=== PATIENT | male | born 1965 | race Caucasian/White ===

== ENCOUNTER 2024-11-08 18:00 | Emergency (ER) | payer BC, SELFPAY ==
[2024-11-08 18:12] VITALS: BP 124/89
[2024-11-08] MEDS: TYLENOL ORAL SOLUTION 650 MG PO (21:31)
[2024-11-08 21:33] VITALS: BMI 23.9
--- NOTE | 2024-11-08 21:39 | ED.GENMED ---
History of Present Illness
General
Chief Complaint: Throat Problem
Source: patient
Time Seen by Provider: 11/08/24 21:30
History of Present Illness
History of Present Illness:
59-year-old male with no significant past medical history presenting to the emergency department for evaluation after earlier this week started with URI-like symptoms including sinus congestion, nasal pressure, sore throat and headache with most of
the symptoms resolving except patient still has the sore throat noting the right side of his throat feels like he is swallowing glass, very pain, notes lesions to the tonsil on the right side and no improvement after being prescribed amoxicillin.
Went to urgent care today and was switched to steroids and a Z-Chris but still having no relief. Patient does note a history of seasonal allergies and usually gets this type of URI once a year. No reported fevers. States for the last 4 days has not
been eating many solids, mostly liquids or ice cream. Denies drooling or spitting. No known sick contacts. Patient currently visiting this area from [place].
Past History
Past History
ED Past Medical History: None
ED Past Surgical History: Other
Social History
Tobacco: Non-smoker
Alcohol: Occasional
Drug: None
Personal:
Living: with family
Employment: Employed
Review of Systems
Review of Systems
All Other Systems: ROS reviewed and negative except as documented in HPI and ROS
Phy Exam
Physical Exam
Physical Exam:
GENERAL: Alert , in no apparent distress, Very anxious
HEAD: Normocephalic atraumatic
EYE: conjunctiva clear
NECK: Supple, no significant adenopathy.
ENT: o/p clr, mmm., Small vesicles to the right palatine tonsil, minimal tonsillar edema, no uvular deviation, no stridor or trismus, tolerating secretions
CARDIAC: Regular rate and rhythm
LUNGS: Clear breath sounds bilaterally, no acute respiratory distress, no wheezes/rales/rhonchi
NEUROLOGICAL: Alert and oriented
SKIN: Warm and dry, skin intact.
MUSCULOSKELETAL: well perfused.
PSYCH: Normal and appropriate interaction.
Scores
Heart Failure Risk
Heart Failure Risk Score: Not Applicable
Heart Score for Chest Pain Patients
STEMI patient?: Not applicable
Withdrawal Assessment of Alcohol
Withdrawal Assessment Completed?: Not applicable
Course
Orders/Labs/Results
Orders:
Orders
11/08/24 21:25
Acetaminophen [Tylenol Oral Solution] 650 mg .ROUTE .STK-MED ONE
11/08/24 21:29
Acetaminophen [Tylenol Oral Solution] 650 mg PO NOW STA
11/08/24 21:39
CT Neck With Iv Contrast Urgent
Comment:
Reason For Exam: severe right sided neck pain
Ketorolac [Toradol] 30 mg IV NOW STA
Viscous Lidocaine 2% [Xylocaine Viscous Cup] 15 ml PO NOW STA
11/08/24 21:47
Complete Blood Count/With Diff Urgent
Comprehensive Metabolic Panel Urgent
Abnormal Lab Results
11/08/24
21:47
MCH 32.5 H pg
(27.0-31.0)
Absolute Lymphs (auto) 0.7 L 10^3/uL
(1.2-3.4)
Neutrophils % 85.9 H %
(42.2-75.2)
Lymphocytes % 10.8 L %
(20.5-51.1)
Chloride 109 H mmol/L
(98-107)
Glucose 134 H mg/dl
(70-99)
Total Protein 8.3 H g/dl
(6.3-8.2)
11/08/24 21:47
11/08/24 21:47
Vital Signs
Initial and Last Documented VS:
Initial Vital Signs
Temp Pulse Resp BP Pulse Ox
98.7 F 113 18 124/89 98
11/08/24 18:12 11/08/24 18:12 11/08/24 18:12 11/08/24 18:12 11/08/24 18:12
Last Documented Vital Signs
Temp Pulse Resp BP Pulse Ox
98.7 F 113 18 124/89 98
11/08/24 18:12 11/08/24 18:12 11/08/24 18:12 11/08/24 18:12 11/08/24 21:33
MDM/Problems Addressed
Differential Diagnosis Includes:
Strep, peritonsillar abscess, retropharyngeal abscess, epiglottitis, herpangina, [id number]-[id number]-mouth, minimal concern for STI
MDM/Problems Addressed:
59-year-old male presenting to the ER for continued right-sided neck pain, known tonsillar exudates/lesions over the last few days, has been on amoxicillin with no relief, seen by urgent care today and switched to a Z-Chris and steroids but still has
not had any relief. Reports he was tested for strep and mono at the facility there which was negative. Patient does have a small vesicular eruption on the right palatine tonsil. Given his continued pain and minimal improvement without antibiotics
will obtain CT scan to evaluate for deeper space abscess or other complication. Pain control with Toradol and viscous lidocaine. Reassessment following.
*Radiology
Radiology exam reviewed: radiology read reviewed
*Pulse Oximetry
Patient hypoxic: no
*Critical Care Note
Total Time (30-74mins, 75-104mins- exclusive of procedures): Not Applicable
Patient Management
Escalation/DeEscalation of care consider admission/obs:
CT of the neck shows diffuse pharyngeal wall thickening may reflect pharyngitis. There is no parapharyngeal or retropharyngeal abscess, epiglottis is normal, airway is patent. Patient does report improvement of symptoms following medications here.
He remains overall well-appearing and nontoxic. Will treat for viscous lidocaine to pharmacy. Given patient already started antibiotics we will have him continue this. Information for ear nose and throat provided. Patient aware of return
precautions.
ED Attending Note
-
Portions of this chart may have been created with voice recognition software.� Occasional wrong word or��sound alike� substitutions may have occurred due to the inherent limitations of voice recognition software.
Discharge Plan
Departure
Patient Disposition: Home (Routine Discharge)
Date of Disposition: 11/08/24
Time of Disposition: 23:19
Patient with high blood pressure during this ER visit?: No
Discharge Problem:
Pharyngitis
Instructions: Sore Throat, Adult (DC)
Prescriptions:
New
lidocaine HCl [Lidocaine Viscous] 2 % solution
15 ml mucous membrane TID PRN (Reason: Pain) Qty: 100 0RF
Referrals:
Neftali Davila MD [Active] - (ENT)
UNKNOWN,NO INTERVIEW [Family Provider] -
Interventions
Interventions:
*Risk Screen - Suicide Last Done: 11/08/24 18:12
*General Assessment Last Done: 11/08/24 18:12
*Neglect/Abuse Screening Last Done: 11/08/24 18:12
*ED- Fall Risk Assessment Last Done: 11/08/24 21:33
*ED COVID-19 Vaccine History Last Done: 11/08/24 21:33
ED-EENT Assessment Last Done: 11/08/24 21:33
ED- Pulmonary Assessment Last Done: 11/08/24 21:33
Discharge Date and Time
Print Language: OCCITAN
[2024-11-08] MEDS: TORADOL 30 MG IV (21:49)
[2024-11-08] MEDS: XYLOCAINE VISCOUS CUP 15 ML PO (21:50)
[2024-11-08 21:54] LABS: % Basophils 0.2 % (0-2); % Immature Granulocytes 0.2 % (0-0.5); % Lymphocytes 10.8 % (20.5-51.1); % Monocytes 2.9 % (1.7-9.3); % Neutrophils 85.9 % (42.2-75.2); Absolute Lymphocytes 0.7 10^3/uL (1.2-3.4); Absolute Monocytes 0.2 10^3/uL (0.1-0.6); Absolute Neutrophils 5.7 10^3/uL (1.4-6.5); Hematocrit 43.1 % (39.0-52.0); Hemoglobin 15.5 g/dL (13.0-18.0); Mean Corpuscular Hgb 32.5 pg (27.0-31.0); Mean Corpuscular Volume 90.4 fL (80.0-94.0); Mean Platelet Volume 9.4 fL (7.4-10.4); Nucleated Red Blood Cells % 0 % (-); Platelet Count 260 10^3/uL (130-400); Red Blood Cell Count 4.77 10^6/uL (4.70-6.10); Red Cell Dist. Width 12.5 % (11.5-14.5); White Blood Cell Count 6.6 10^3/uL (4.8-10.8)
[2024-11-08 22:08] LABS: ALT (SGPT) 19 U/L (0-50); AST (SGOT) 19 U/L (17-59); Alkaline Phosphatase 48 U/L (38-126); Blood Urea Nitrogen 9 mg/dl (9-20); Calcium 9.7 mg/dl (8.4-10.2); Carbon Dioxide 23 mmol/L (22-30); Chloride 109 mmol/L (98-107); Estimated Creatinine Clearance 104 ml/min; Glucose 134 mg/dl (70-99); Potassium 4.3 mmol/L (3.5-5.1); Sodium 140 mmol/L (135-145); Total Bilirubin 0.8 mg/dl (0.2-1.3); Total Protein 8.3 g/dl (6.3-8.2); eGFR > 60.00
[2024-11-08 23:37] VITALS: BP 119/70
== END 2024-11-08 23:41 | disposition home or self-care (01) ==
LOC: EMR 18:00
PROVIDERS: Physician Assistant Medical; EMERGENCY PHYSICIAN Emergency Medicine
DX: J02.9 Acute pharyngitis, unspecified (principal); M54.2 Cervicalgia; R09.81 Nasal congestion; R51.9 Headache, unspecified; R23.8 Other skin changes; Z91.048 Other nonmedicinal substance allergy status
CPT/HCPCS: 99284; 96374; 70491; 80053; 85025; Q9967

== ENCOUNTER → 2025-01-09 10:08 | Outpatient (REF) | payer BC, SELFPAY | LOC: RAD 10:08 | PROVIDERS: ATTENDING PHYSICIAN Otolaryngology; FAMILY PHYSICIAN Family Medicine | DX: K21.9 Gastro-esophageal reflux disease without esophagitis (principal); R07.0 Pain in throat | CPT/HCPCS: 74221 ==